=== PATIENT | male | born 1950 | race Caucasian/White ===

== ENCOUNTER → 2021-06-10 | Outpatient (CLI) | payer OTHER | LOC: SJCVC 10:52 | PROVIDERS: ATTEND Internal Medicine Cardiovascular Disease | DX: R06.00 Dyspnea, unspecified (principal); I10 Essential (primary) hypertension; I20.8 Other forms of angina pectoris; E78.00 Pure hypercholesterolemia, unspecified; Z79.899 Other long term (current) drug therapy; Z79.84 Long term (current) use of oral hypoglycemic drugs ==

== ENCOUNTER → 2021-07-04 | Outpatient (CLI) | payer OTHER | LOC: CAT 14:22 | PROVIDERS: ATTEND Internal Medicine Cardiovascular Disease | DX: Z13.6 Encounter for screening for cardiovascular disorders (principal); E78.00 Pure hypercholesterolemia, unspecified; I25.10 Atherosclerotic heart disease of native coronary artery without angina pectoris ==

== ENCOUNTER → 2021-07-05 | Outpatient (CLI) | payer OTHER ==
[~2021-07-05] MED LIST: ASA81BEC PO; LISINOPRIL20 MG PO; METFORMIN HCL500 MG PO; NORVASC10 MG PO; ROSUVASTATIN CA20 MG PO; VARDENAFIL HCL20 MG PO
== END ==
LOC: SJCVCIMAG
PROVIDERS: ATTEND Internal Medicine Cardiovascular Disease
DX: I35.1 Nonrheumatic aortic (valve) insufficiency (principal); R93.1 Abnormal findings on diagnostic imaging of heart and coronary circulation; I20.8 Other forms of angina pectoris; R06.00 Dyspnea, unspecified; E78.00 Pure hypercholesterolemia, unspecified; I10 Essential (primary) hypertension; E11.9 Type 2 diabetes mellitus without complications; E78.5 Hyperlipidemia, unspecified; Z79.82 Long term (current) use of aspirin; Z79.899 Other long term (current) drug therapy; Z87.891 Personal history of nicotine dependence; Z72.89 Other problems related to lifestyle

== ENCOUNTER → 2021-07-15 | Outpatient (CLI) | payer OTHER ==
[~2021-07-15] VITALS: Ht 170.2 cm; Wt 88.5 kg
[2021-07-15 08:23] VITALS: BP 152/84
--- NOTE | 2021-07-15 12:43 | CATHLAB ---
[facility] [place] [address] INVASIVE PROCEDURE REPORT Name: RENEE MONTERO JR Room #: REG [facility]#: [id number] Admission: 07/15/21 Attend Phys: Jesús Tomlinson MD Discharge: Date of : 52 Report #: [id number] THIS REPORT FOR: cc: Rosalind Moreno DNP, Mary E. DNP Park, Jin S. MD ~ APPROVED REPORT Study performed: 07/15/2021 09:31:36 Patient Details Patient Status: Out-Patient Room #: The patient is a 71 year-old male Event Personnel Jesús Tomlinson Zone Manager, Ellie Perkins RN RN, May Rodriguez RTR, WR[employer] Monitor, Evelyn Guzman Procedures Performed Art Access - R femoral artery* Left Heart Cath w/or w/o Coronaries [id number] [facility] [id number] Initial Mod Sed Same Phys/QHP Gr5y [id number] 90575 Mod Sed Same Phys/QHP Ea [id number] Hemostasis with Manual pressure Indication Dyspnea, Positive stress test Risk Factors HypercholesterolemiaPhysical Activity, Coronary Artery DiseaseHypertension, Diabetes Procedure Narrative The Right Groin^ was infiltrated with 1% Lidocaine subcutaneous anesthesia. A PINNACLE 4FR Sheath #[id number] sheath was inserted into the RFA^. Coronary angiography was performed using coronary diagnostic catheters. The right coronary system was accessed and visualized with a JR4 catheter. The left coronary system was accessed and visualized with a JL4 catheter. The left ventricle was accessed and visualized with a JR4 catheter. Left ventricular/Aortic Valve gradient assessed via catheter pullback. Hemostasis was obtained with manual pressure following sheath removal without any complications. The patient tolerated the procedure well and there were no complications associated with the procedure. There was no hematoma. [facility] [address] [place] [address] INVASIVE PROCEDURE REPORT Name: RENEE MONTERO Room #: REG [facility]#: [id number] Admission: 07/15/21 Attend Phys: Jesús Tomlinson MD Discharge: Date of : 52 Report #: [id number] Intraoperative Conscious Sedation Sedation start time: 10:37 Case end Time: 11:03 Fentanyl 50 mcg Versed 1 mg Fluoro Time: 1.90 minutes Dose: DAP 5899.20 cGycm2 829 mGy Contrast Type and Amount: Omnipaque 55 ml Coronary Angiography The patient's coronary anatomy is right dominant. Diagnostic Cath Left Main The left main artery is a large-caliber vessel, appears angiographically normal. LAD The LAD is a moderate-sized caliber vessel, traverses the anterior wall and wraps around the apex. There is mild to moderate diffuse disease in the distal segment just before the apex, 30 to 50%. Diagonal 1 This is a small to moderate-sized caliber vessel with mild disease proximally. Circumflex The left circumflex artery is a moderate-sized caliber vessel with mild disease proximally. OM1 This is a moderate-sized caliber vessel with mild disease in the proximal segment. OM2 This is a moderate-sized caliber vessel with mild disease in the proximal segment. This vessel divides into 2 branches. Right Coronary The RCA is a moderate-sized caliber vessel with mild disease in the midsegment. R PDA This is a small to moderate-sized caliber vessel, patent with no flow-limiting lesions. RPLV This is a small to moderate-sized caliber vessel, patent with no flow-limiting lesions. Left Ventriculography Left Ventriculography was not performed. Ejection Fraction was 60% based off patient's Nuclear Cardiac Stress Test. An LVEDP was measured and there is no gradient across the outflow tract. Hemodynamics The aortic pressure is 132/76 mmHg with a mean of 102 mmHg. The left ventricular pressure is 133/11 mmHg with a mean of mmHg. The left ventricular end diastolic pressure is 22 mmHg. [facility] [address] [place] [address] INVASIVE PROCEDURE REPORT Name: RENEE MONTERO Room #: REG [facility]#: [id number] Admission: 07/15/21 Attend Phys: Jesús Tomlinson MD Discharge: Date of : 52 Report #: [id number] Conclusion 1. There is mild to moderate disease in the distal LAD. 2. There is mild disease in the left circumflex, OM1, OM 2, and RCA. 3. There is normal LV systolic function. 4. Recommend risk factor management. <ELECTRONICALLY SIGNED> By: Jesús Tomlinson MD 07/15/21 1242 [id number] Jesús Tomlinson MD /INF
== END | disposition home or self-care (01) ==
LOC: CATH 06:56
PROVIDERS: ATTEND Internal Medicine Cardiovascular Disease
DX: R94.39 Abnormal result of other cardiovascular function study (principal); I25.10 Atherosclerotic heart disease of native coronary artery without angina pectoris; R06.00 Dyspnea, unspecified; I10 Essential (primary) hypertension; E78.00 Pure hypercholesterolemia, unspecified; E78.5 Hyperlipidemia, unspecified; E11.9 Type 2 diabetes mellitus without complications; E66.9 Obesity, unspecified; Z98.890 Other specified postprocedural states; Z79.899 Other long term (current) drug therapy; Z87.891 Personal history of nicotine dependence

== ENCOUNTER → 2021-08-05 | Outpatient (CLI) | payer OTHER | LOC: SJCVC 14:57 | PROVIDERS: ATTEND Internal Medicine Cardiovascular Disease | DX: R94.31 Abnormal electrocardiogram [ECG] [EKG] (principal); I25.10 Atherosclerotic heart disease of native coronary artery without angina pectoris; R06.00 Dyspnea, unspecified; E78.00 Pure hypercholesterolemia, unspecified; I10 Essential (primary) hypertension; E11.9 Type 2 diabetes mellitus without complications; E78.5 Hyperlipidemia, unspecified; Z87.891 Personal history of nicotine dependence; Z72.89 Other problems related to lifestyle; Z79.82 Long term (current) use of aspirin; Z79.84 Long term (current) use of oral hypoglycemic drugs; Z79.899 Other long term (current) drug therapy; Z82.49 Family history of ischemic heart disease and other diseases of the circulatory system ==

== ENCOUNTER → 2021-09-27 | Outpatient (CLI) | payer OTHER | LOC: SJCVC 10:00 | PROVIDERS: ATTEND Internal Medicine Cardiovascular Disease | DX: R94.31 Abnormal electrocardiogram [ECG] [EKG] (principal); E78.00 Pure hypercholesterolemia, unspecified; I25.10 Atherosclerotic heart disease of native coronary artery without angina pectoris; I10 Essential (primary) hypertension; R06.00 Dyspnea, unspecified; E11.9 Type 2 diabetes mellitus without complications; Z79.82 Long term (current) use of aspirin; Z79.84 Long term (current) use of oral hypoglycemic drugs; Z79.899 Other long term (current) drug therapy; Z87.891 Personal history of nicotine dependence; Z72.89 Other problems related to lifestyle; Z82.49 Family history of ischemic heart disease and other diseases of the circulatory system ==